=== PATIENT | male | born 1965 | race Two or more races ===

== ENCOUNTER 2023-12-28 10:44 | Day surgery (SDC) | payer OTHER ==
[2023-12-28 11:15] VITALS: BMI 32.5
[2023-12-28 12:44] VITALS: TEMP 97.3
[2023-12-28 13:02] VITALS: BP 133/85; PULSE 87; RESP 12
== END 2023-12-28 13:02 | disposition home or self-care (01) ==
LOC: FASU-ENDO 10:44
PROVIDERS: ATTEND Internal Medicine Gastroenterology
PROC: 0DJD8ZZ Inspection of Lower Intestinal Tract, Via Natural or Artificial Opening Endoscopic (ICD-10-PCS; principal; 2023-12-28 12:09)
DX: Z12.11 Encounter for screening for malignant neoplasm of colon (principal)